=== PATIENT | female | born 1985 | race Caucasian/White ===

== ENCOUNTER 2017-05-14 16:33 | Emergency (ER) | payer BC, OTHER ==
[~2017-05-14] VITALS: Ht 149.9 cm; Wt 116.7 kg
[~2017-05-14 16:33] MED LIST: ALBUAER2 INH; FLUT220A INH; MTR600 PO
[2017-05-14 16:39] VITALS: TEMP 36.4; Ht 149.9 cm; Wt 116.7 kg
[2017-05-14] MEDS ORDERED: FLUT230A INH ×2 (16:51→17:18)
[2017-05-14] MEDS ORDERED: FLNIN/ NAE (16:51)
[2017-05-14] MEDS ORDERED: METHYLPREDNISOLONE 125 MG VIAL IV STA (16:51)
[2017-05-14] MEDS ORDERED: ALBUTEROL 0.083% NEBU SOLN 3 ML VIAL INH STA (16:51)
[2017-05-14] MEDS ORDERED: BCPILLS PO (16:51)
[2017-05-14] MEDS ORDERED: VNTHFA/IN INH ×2 (16:51→17:18)
--- NOTE | 2017-05-14 17:07 | DIAGNOSTIC IMAGING REPORT ---
CHEST ONE VIEW PORTABLE CLINICAL HISTORY: 31 years-old Female presenting with sob . TECHNIQUE: Portable upright AP view of the chest was obtained. COMPARISON: 11/21/2014. FINDINGS: Cardiac silhouette enlarged allowing for AP technique. Prominence of pulmonary vasculature. Main pulmonary artery mildly prominent. Lungs and pleural spaces clear. Osseous structures normal. Upper abdomen normal. IMPRESSION: 1. Cardiomegaly with findings suggestive of volume overload and possible elevated pulmonary pressures. Electronically signed by: Moy Jansen M.D. 05/14/2017 5:06 PM Dictated Date/Time: 05/14/2017 5:05 PM
[2017-05-14] MEDS ORDERED: DEXT1CAP8 PO (17:18)
[2017-05-14] MEDS ORDERED: FLUT0.15 NAE (17:18)
[2017-05-14] MEDS ORDERED: DIPH-437 PO (17:18)
[2017-05-14 17:29] LABS: BASO % 0.1 %; BASO ABS # 0.02 K/uL (0-0.2); EOS % 4.6 %; EOS ABS # 0.65 K/uL (0-0.5); HEMATOCRIT 36.8 % (37-47); HEMOGLOBIN 12.3 g/dL (12.0-16.0); IG# 0.07 K/uL (0.00-0.02); LYMPH % 9.6 %; LYMPH ABS # 1.35 K/uL (1.2-3.4); MEAN CELL VOLUME 75.9 fL (80-100); MEAN CORPUSCULAR HEMOGLOBIN 25.4 pg (25-34); MEAN CORPUSCULAR HGB CONC 33.4 g/dl (32-36); MEAN PLATELET VOLUME 9.6 fL (7.4-10.4); MONO % 6.4 %; MONO ABS # 0.89 K/uL (0.11-0.59); NEUT % 78.8 %; NEUT ABS # 11.01 K/uL (1.4-6.5); PLATELET COUNT 385 K/uL (130-400); RED CELL DISTRIBUTION WIDTH CV 16.7 % (11.5-14.5); RED CELL DISTRIBUTION WIDTH SD 45.6 fL (36.4-46.3); WHITE BLOOD COUNT 13.99 K/uL (4.8-10.8)
[2017-05-14] MEDS ORDERED: AZITHROMYCIN 250 MG TAB PO STA (17:34)
[2017-05-14 17:45] LABS: BLOOD UREA NITROGEN 7 mg/dl (7-18); CALCIUM 9.3 mg/dl (8.5-10.1); CARBON DIOXIDE 31 mmol/L (21-32); CREATININE 0.84 mg/dl (0.60-1.20); GLUCOSE 93 mg/dl (70-99); POTASSIUM 3.5 mmol/L (3.5-5.1); SODIUM 139 mmol/L (136-145)
[2017-05-14 17:50] VITALS: PULSE 108; O2SAT 98
[2017-05-14 18:15] VITALS: O2SAT 94
[2017-05-14] MEDS ORDERED: AZIT-57 PEG (19:27)
[2017-05-14] MEDS ORDERED: PRED50TA PO (19:27)
[2017-05-14 19:36] VITALS: BP 126/87; PULSE 105; O2SAT 95
[2017-05-14 19:48] LABS: INFLUENZA B ANTIGEN Neg for Influ B (NEG)
--- NOTE | 2017-05-14 23:02 | EMERGENCY ROOM VISIT NOTE ---
History Report prepared by Le: Sarah Beth Chavez Under the Supervision of: Cornell AminO. First contact with patient: 16:41 Chief Complaint: SHORTNESS OF BREATH Stated Complaint: CHEST PAIN, SHORTNESS OF BREATH History of Present Illness The patient is a 31 year old female who presents to the Emergency Room with complaints of persistent shortness of breath that began yesterday. She notes that she has chest pain and a productive cough, noting some clear and green mucous. She states that her pain worsens with deep breaths. The patient states a history of asthma, noting she takes 4 pumps of Xopenex and 4 puffs of Albuterol daily. She notes that all of her children have been sick recently. The patient denies any history of blood clots or bronchiolitis. Patient denies swelling of calves, recent trips, history of immobilization or recent surgery, prior history of DVT, hemoptysis, history of malignancy, history of smoking, or control/estrogen use. Patient denies diabetes, hypertension, hyperlipidemia, CAD, history of sudden at a young age. Pt denies headache , change in vision, fevers, nausea, vomiting, diarrhea, pain with urination, and melena. Source of History: patient Onset: yesterday Position: other (global) Symptom Intensity: persistent Associated Symptoms: + cough, + chest pain Review of Systems See HPI for pertinent positives & negatives. A total of 10 systems reviewed and were otherwise negative. Past Medical & Surgical Medical Problems: (1) Asthma (2) spontaneous labor with delivery Surgical Problems: (1) S/P cholecystectomy (2) S/P tonsillectomy Family History Asthma MOTHER SON Diabetes mellitus FATHER MOTHER FH: lung cancer MATERNAL GRANDFATHER FH: multiple sclerosis MOTHER Social History Smoking Status: Never Smoker Alcohol Use: none Marital Status: Housing Status: lives with family Occupation Status: employed Current/Historical Medications Scheduled Azithromycin (Azithromycin), 250 MG PEG DAILY Fluticasone Propionate (Nasal) (Flonase Allergy Relief), 2 SPRAYS FRANK DAILY Fluticasone-Salmeterol 230/21 Mcg (Advair Hfa 230/21 Mcg), 2 PUFFS INH BID Prednisone (Prednisone), 50 MG PO DAILY Scheduled PRN Albuterol Hfa (Ventolin Hfa), 2 PUFFS INH Q4 PRN for SOB/Wheezing Tyjxymughcrkzpwk-Ifbvqejuzi-Dn (Vicks Nyquil Cold & Flu), 2 TABS PO HS PRN for COLD SYMPTOMS Diphenhydramine-Acetaminophen (Tylenol Pm), 1 TAB PO HS PRN for Sleep Allergies Coded Allergies: No Known Allergies (Unverified , 04/20/15) Physical Exam Vital Signs Date Time Temp Pulse Resp B/P (MAP) Pulse Ox O2 Delivery O2 Flow Rate FiO2 05/14/17 19:36 105 22 126/87 95 Room Air 05/14/17 18:58 116 24 131/71 100 Nebulizer 6.0 05/14/17 18:55 94 Room Air 05/14/17 18:15 94 Room Air 05/14/17 17:50 108 26 98 Room Air 05/14/17 16:39 36.4 107 24 144/102 92 Room Air Physical Exam GENERAL: Audible wheezing. Sitting up in bed, speaking in full sentences. Alert , well appearing, well nourished, mild distress, non-toxic EYE EXAM: normal conjunctiva. PERRL and EOM's grossly intact. OROPHARYNX: no exudate, no erythema, lips, buccal mucosa, and tongue normal and mucous membranes are moist NECK: supple, no nuchal rigidity, no adenopathy, non-tender LUNGS: Poor air movement with diffuse wheezing bilateral. HEART: Distant. no murmurs, S1 normal and S2 normal ABDOMEN: abdomen soft, non-tender, normo-active bowel sounds, no masses, no rebound or guarding. BACK: Back is symmetrical on inspection and there is no deformity, no midline tenderness, no CVA tenderness. SKIN: no rashes and no bruising UPPER EXTREMITIES: upper extremities are grossly normal. LOWER EXTREMITIES: Calves are equal bilaterally. No pitting edema. NEURO EXAM: Normal sensorium, cranial nerves II-XII grossly intact, normal speech, no gross weakness of arms, no gross weakness of legs. Medical Decision & Procedures ER Provider Diagnostic Interpretation: Radiology results as stated below per my review and the radiologist's interpretation: CHEST ONE VIEW PORTABLE CLINICAL HISTORY: 31 years-old Female presenting with sob . TECHNIQUE: Portable upright AP view of the chest was obtained. COMPARISON: 11/21/2014. FINDINGS: Cardiac silhouette enlarged allowing for AP technique. Prominence of pulmonary vasculature. Main pulmonary artery mildly prominent. Lungs and pleural spaces clear. Osseous structures normal. Upper abdomen normal. IMPRESSION: 1. Cardiomegaly with findings suggestive of volume overload and possible elevated pulmonary pressures. Electronically signed by: Moy Jansen M.D. 05/14/2017 5:06 PM Dictated Date/Time: 05/14/2017 5:05 PM Laboratory Results 05/14/17 17:15 Red Blood Count 4.85, Mean Corpuscular Volume 75.9, Mean Corpuscular Hemoglobin 25.4, Mean Corpuscular Hemoglobin Concent 33.4, Mean Platelet Volume 9.6, Neutrophils (%) (Auto) 78.8, Lymphocytes (%) (Auto) 9.6, Monocytes (%) (Auto) 6.4, Eosinophils (%) (Auto) 4.6, Basophils (%) (Auto) 0.1, Neutrophils # (Auto) 11.01, Lymphocytes # (Auto) 1.35, Monocytes # (Auto) 0.89, Eosinophils # (Auto) 0.65, Basophils # (Auto) 0.02 05/14/17 17:15 Test 05/14/17 17:15 05/14/17 19:00 White Blood Count 13.99 K/uL (4.8-10.8) Red Blood Count 4.85 M/uL (4.2-5.4) Hemoglobin 12.3 g/dL (12.0-16.0) Hematocrit 36.8 % (37-47) Mean Corpuscular Volume 75.9 fL (80-100) Mean Corpuscular Hemoglobin 25.4 pg (25-34) Mean Corpuscular Hemoglobin Concent 33.4 g/dl (32-36) Platelet Count 385 K/uL (130-400) Mean Platelet Volume 9.6 fL (7.4-10.4) Neutrophils (%) (Auto) 78.8 % Lymphocytes (%) (Auto) 9.6 % Monocytes (%) (Auto) 6.4 % Eosinophils (%) (Auto) 4.6 % Basophils (%) (Auto) 0.1 % Neutrophils # (Auto) 11.01 K/uL (1.4-6.5) Lymphocytes # (Auto) 1.35 K/uL (1.2-3.4) Monocytes # (Auto) 0.89 K/uL (0.11-0.59) Eosinophils # (Auto) 0.65 K/uL (0-0.5) Basophils # (Auto) 0.02 K/uL (0-0.2) RDW Standard Deviation 45.6 fL (36.4-46.3) RDW Coefficient of Variation 16.7 % (11.5-14.5) Immature Granulocyte % (Auto) 0.5 % Immature Granulocyte # (Auto) 0.07 K/uL (0.00-0.02) Prothrombin Time 10.9 SECONDS (9.0-12.0) Prothromb Time International Ratio 1.0 (0.9-1.1) D-Dimer 330 ug/L FEU (0-500) Anion Gap 3.0 mmol/L (3-11) Est Creatinine Clear Calc Drug Dose 113.3 ml/min Estimated GFR () 108.9 Estimated GFR (Non- 93.9 BUN/Creatinine Ratio 7.9 (10-20) Calcium Level 9.3 mg/dl (8.5-10.1) Troponin I < 0.015 ng/ml (0-0.045) Influenza Type A Antigen Neg for Influ A (NEG) Influenza Type B Antigen Neg for Influ B (NEG) Laboratory results per my review. Medications Administered Medications (Trade) Dose Ordered Sig/Deniz Route Start Time Stop Time Status Last Admin Dose Admin Albuterol Sulfate (Ventolin 0.083% 2.5MG/3ML Neb) 7.5 mg NOW STAT INH 05/14/17 16:51 05/14/17 16:53 DC 05/14/17 17:49 7.5 MG Methylprednisolone Sodium Succinate (Solu-Medrol IV) 125 mg NOW STAT IV 05/14/17 16:51 05/14/17 16:53 DC 05/14/17 17:33 125 MG Azithromycin (Zithromax Tab) 500 mg NOW STAT PO 05/14/17 17:34 05/14/17 17:35 DC 05/14/17 18:55 500 MG ECG Indication: SOB/dyspnea Rate (beats per minute): 100 Rhythm: sinus tachycardia Findings: no ectopy, other (normal axis) ED Course ED COURSE: Vital signs were reviewed and showed tachycardic rate. The patients medical record was reviewed The above diagnostic studies were performed and reviewed. ED treatments and interventions as stated above. 1643: The patient was evaluated in room B12. A complete history and physical examination was performed. 1650:Ordered Solu-Medrol IV 125mg and Albuterol Sulfate 7.5mg INH. 1733: Ordered Zithromax Tab 500mg PO. 1821: I reevaluated the patient, who states she is feeling significantly better. 1922: I reevaluated the patient, who states she is feeling better. I discussed the test findings with her, she verbalized complete understanding and agreement. The patient was discharged home. Medical Decision Differential diagnosis: Etiologies such as infections, reactive airway disease, pneumonia, pneumothorax , COPD, CHF, cardiac ischemia, pulmonary embolism, musculoskeletal, gastrointestinal, as well as others were entertained. The patient is a 31 year old female who presents to the ED with complaints of shortness of breath. She notes her symptoms started in the past 24 hours when she developed a cough and runny nose. She notes that he'll typical for her asthma exacerbations. Upon presentation she does have diffuse wheezing. Pulse ox is slightly low at 92%. She was tachycardic. IV and labs were obtained. She has mild leukocytosis of 14,000. BMP was unremarkable. Troponin was negative. D-dimer was negative and a low risk patient. EKG was nondiagnostic. Influenza A and B were negative. Patient was given an hour-long neb treatment. She had near complete resolution of her symptoms. She felt significantly better. I did obtain a chest x-ray which shows no infiltrate. I did not think it was significantly different from previous chest x-ray. Radiology did question possible pulmonary hypertension. Based on this I discussed with care management having her follow-up as an outpatient in getting her appointment with her PCP for further workup. She denies any chest pain or shortness of breath with exertion on a usual basis. She denies any weight gain. No swelling of the legs. I favor these symptoms are explained by an asthma exacerbation secondary to bronchitis. I did cover with antibiotics. I discharged her on steroids. Discussed with Pt concerning signs and symptoms to watch out for. Pt was instructed to follow up with their PCP and discussed with the patient their option to return to the ED at anytime for persistent or worsening symptoms. The appropriate anticipatory guidance and out-patient management, including indications for return to the emergency department, were explained at length to the patient and understood. Medication Reconcilliation Current Medication List: was personally reviewed by me Blood Pressure Screening Patient's blood pressure: Elevated blood pressure Blood pressure disposition: Elevated BP felt to be situational Impression Primary Impression: Asthma with exacerbation Additional Impression: Acute bronchitis Scribe Attestation The scribe's documentation has been prepared under my direction and personally reviewed by me in its entirety. I confirm that the note above accurately reflects all work, treatment, procedures, and medical decision making performed by me. Departure Information Dispostion Home / Self-Care Prescriptions Azithromycin (Azithromycin) 250 Mg Tab 250 MG PEG DAILY for 4 Days Prov: Delgado Issa, DO 05/14/17 Prednisone (PREDNISONE) 50 Mg Tab 50 MG PO DAILY for 5 Days, #5 TAB Prov: Delgado Issa, 05/14/17 Referrals Milana Payton DO (PCP) Forms HOME CARE DOCUMENTATION FORM, IMPORTANT VISIT INFORMATION Patient Instructions My [facility] Additional Instructions Please follow up with your primary care doctor or if you are a student, [facility] with in the next 24 hours. Any worsening of your symptoms, please return to the ED immediately. This includes any fevers greater than 100.4, worsening pain, chest pain, shortness breath, persistent nausea, vomiting, unable to eat or drink, or any other concerning signs or symptoms from your standpoint. Please follow up with your primary care doctor within the next 2-3 days as on chest x-ray he had a slightly enlarged heart and possible pulmonary hypertension per radiology. Please take antibiotics and steroids as prescribed. Problem Qualifiers Primary Impression: Asthma with exacerbation Asthma severity: unspecified severity Asthma persistence: unspecified Qualified Codes: J45.901 - Unspecified asthma with (acute) exacerbation Additional Impression: Acute bronchitis Bronchitis organism: unspecified organism Qualified Codes: J20.9 - Acute bronchitis, unspecified
== END 2017-05-14 19:44 | disposition home or self-care (01) ==
LOC: C.EDB 16:34
DX: J45.901 Unspecified asthma with (acute) exacerbation (principal); J20.9 Acute bronchitis, unspecified; Z82.5 Family history of asthma and other chronic lower respiratory diseases; Z83.3 Family history of diabetes mellitus